=== PATIENT | female | born 1990 | race Caucasian/White ===

== ENCOUNTER 2022-05-27 12:31 | Emergency (ER) | payer OTHER, SELFPAY ==
--- NOTE | 2022-05-27 12:37 | ED.SKABFB ---
HPI - Skin/Abscess/Foreign Bdy General Chief complaint: Skin/Abscess/Foreign Body Stated complaint: Insect Bite Time Seen by Provider: 05/27/22 12:37 Source: patient Mode of arrival: ambulatory Limitations: no limitations History of Present Illness HPI narrative: Ms. Moran is a 31-year-old female patient presenting to the clinic today with complaints of possible insect bite to the left forearm and a rash to the flexor surface of the elbow to the left arm. She reports that she first noticed the rash to her elbow began yesterday and became blistery and itchy. States that she was bitten by an insect a few days ago and the area has become dark and raised. Reports that around the area it is itchy however the bite itself is mildly painful. No discharge Related Data Home Medications Medication Instructions Recorded Confirmed fluoxetine 20 mg capsule 20 mg PO DAILY 05/27/22 05/27/22 norgestrel 0.3 mg-ethinyl 1 tablet PO DAILY 05/27/22 05/27/22 estradiol 30 mcg tablet (Rob (28)) Allergies Allergy/AdvReac Type Severity Reaction Status Date / Time No Known Allergies Allergy Verified 05/27/22 12:43 Review of Systems Review of Systems: Pertinent positives per HPI. Patient denies any fever, chills, headache, visual changes, dizziness, cough, runny nose, sore throat, shortness of breath, chest pain, palpitations, nausea, vomiting, diarrhea, constipation, abdominal pain, or any urinary issues. PMFSH Comments At the time of my signature, I reviewed and agree with the nursing past medical, surgical, social, and family history. There is no relevant family history pertinent to the patient complaint. Exam Narrative: General: Well-developed, well nourished, in no apparent distress Head: Normocephalic, atraumatic. Cardio: Regular rate and rhythm, s1 and s2 normal, no murmur appreciated. Resp: Clear to auscultation bilaterally, no rhonchi, rales, wheezing or rubs. Integumentary: [place], warm, and dry, small dime sized area of induration to the left forearm with brown center where she has been bitten by an insect. Mildly tender to palpation, blistery red raised rash to the flexor surface of the left elbow. Course Course Emergency Course: Portions of this record may have been created with voice recognition software. Level of Care: Express Care Visit Vital Signs Vital signs: Vital signs reviewed MDM - Skin/Abscess/Foreign Bdy MDM Narrative Medical decision making narrative: At the time of visit patient was resting comfortably on the exam table. I suspect the patient has dermatitis to the left elbow and a skin infection from the insect bite to her left forearm. I will send her in a prescription for triamcinolone cream for the left elbow and mupirocin cream for the left forearm. Supportive measures were discussed with the patient she voiced understanding of discharge instructions and agrees to treatment plan. Differential Diagnosis Differential diagnosis: Likely abscess of skin or subcutaneous tissue, cellulitis, eczema, insect bites and contact dermatitis Discharge Plan Discharge Clinical Impression: Dermatitis Insect bite Qualifiers: Encounter type: initial encounter Site of insect bite: forearm Laterality: left Qualified Code(s): S50.862A - Insect bite (nonvenomous) of left forearm, initial encounter Patient Disposition: Home, Self-Care Condition: Stable Instructions: Antibiotic Form, Insect Bite or Sting (ED), Dermatitis (ED) Additional Instructions: May take 25 to 50 mg of Benadryl as needed for itching Apply triamcinolone cream to rash in the elbow flexor area as prescribed Apply mupirocin cream over the insect bite as prescribed Follow-up with your PCP in 3 to 5 days if symptoms persist or sooner if they worsen Prescriptions: New triamcinolone acetonide 0.1 % cream 1 applic topical BID 7 Days Qty: 30 0RF mupirocin 2 % ointment 1 applic topical BID 7 Days Qty: 22 0RF No Act
[2022-05-27 12:41] VITALS: BP 123/78; PULSE 64; RESP 16; TEMP 36.8; O2SAT 100
== END 2022-05-27 12:47 | disposition home or self-care (01) ==
PROVIDERS: Emergency Provider Nurse Practitioner Family
DX: L30.9 Dermatitis, unspecified (principal); S50.862A Insect bite (nonvenomous) of left forearm, initial encounter; W57.XXXA Bitten or stung by nonvenomous insect and other nonvenomous arthropods, initial encounter
CPT/HCPCS: 99203; G0463